=== PATIENT | female | born 1950 | race Caucasian/White ===

== ENCOUNTER 2020-03-31 07:03 | Inpatient (IN) | payer OTHER, SELFPAY ==
[2020-03-31] VITALS (15 sets, daily range): BP systolic 110–178; BP diastolic 66–99; PULSE 87–107; RESP 14–22; TEMP 36.4–37; O2SAT 91–100; BMI 31.1
--- NOTE | 2020-03-31 07:09 | W.ED.SOB ---
HPI - SOB/Dyspnea General: Chief Complaint: Shortness of Breath/Dyspnea Stated Complaint: SOB, cough Time Seen by Provider: 03/31/20 07:09 History of Present Illness: HPI Narrative: 70-year-old female comes in complaining of shortness of breath. Patient presents via EMS on 4 L/min. She states she recently traveled here from [place] she has had increasing difficulty breathing this morning when she tries to take a deep breath she says her chest feels like she cannot really breathe and all the way. She tried some nebulizers at home with no relief. She denies fever she has a baseline productive cough the cough is not changed in volume of sputum or color or character. She denies nausea vomiting or diarrhea no GI or symptoms. MD elicited complaint: shortness of breath and cough Pertinent past history: COPD Onset (ago): day(s) Context: recent travel (Traveled to [place] for [facility]) and anxiety Severity: moderate Exacerbating factors: coughing, inspiration, stress and smoke Relieving factors: oxygen and rest Known history of: COPD Associated symptoms: Reports cough; Deny abdominal pain, chest pain, diaphoresis, dizziness, extremity pain, fever(s), hemoptysis, lightheadedness, nausea, orthopnea, palpitations, paresthesias, rash, sense of impending doom, syncope, vomiting or other Treatment prior to arrival: oxygen, bronchodilator and other (Solu-Medrol) Review of Systems Const: Denies: fever(s) or diaphoresis ENMT: Denies: throat pain, ear or mastoid pain, nasal discharge or nasal congestion Card: Denies: chest pain, palpitations, lightheadedness, syncope or orthopnea Resp: Denies: hemoptysis GI: Denies: abdominal pain, nausea or vomiting : Denies: flank pain, difficulty voiding, dysuria, urinary frequency or urinary urgency Musc: Denies: extremity pain Skin/Breast: Denies: rash or pruritus Neuro: Denies: dizziness PFSH ED PFSH: Medical History COPD (chronic obstructive pulmonary disease) Gastroesophageal reflux disease Hyperlipidemia Hypertension Retinal tear Surgical History Hx of cataract surgery Hx of section Hx of cholecystectomy Family History Mother , Trauma No problems noted. Father Alcoholic Social History (Updated 03/31/20 @ 10:13 by Judy Jaeger DO) Smoking and tobacco status: heavy tobacco smoker cigarettes Packs smoked per day: 1 Years cigarettes smoked: 50 Quit status (tobacco): has quit using tobacco Year quit tobacco: 2019 Former quit date comment: Per patient she quit 2 or 3 weeks ago Alcohol intake: current Alcohol intake frequency: holidays/special occasions only Substance/Drug Use: never Physical Exam Const: COMMON NORMALS: no acute distress GENERAL APPEARANCE: cooperative and comfortable ORIENTATION/CONSCIOUSNESS: Yes awake, Yes oriented to person, Yes oriented to place and Yes oriented to time HENMT: COMMON NORMALS: normocephalic and atraumatic HEAD & SCALP: normocephalic and atraumatic Eye: COMMON NORMALS: Equal, round and reactive pupils present, EOMs intact bilaterally, conjunctivae normal and no scleral icterus CONJUNCTIVA: Yes conjunctivae normal PUPIL: Yes Equal, round and reactive pupils present Neck/C-Spine: COMMON NORMALS: full ROM, no lymphadenopathy, supple and no JVD Lymph: LYMPHATIC: no lymphadenopathy noted and no lymphedema noted Resp: COMMON NORMALS: normal respiratory effort, No retractions, No use of accessory muscles and clear to auscultation bilaterally AUSCULTATION: clear to auscultation bilaterally Cardio: COMMON NORMALS: no JVD, regular rate, regular rhythm and No murmurs present (Cardio) RATE: regular rate RHYTHM: regular rhythm GI: COMMON NORMALS: Soft to palpation and No hepatosplenomegaly present AUSCULTATION: Yes normoactive bowel sounds PALPATION: Yes Soft to palpation, No Tenderness to palpation present (GI), No Guarding due to palpation present (GI) and Yes No hepatosplenomegaly present Extremity: COMMON NORMALS: normal to inspection, capillary refill normal, no clubbing, cyanosis or edema, no calf tenderness and no pedal edema Neuro: SENSORIUM/ORIENTATION: Yes oriented to person, Yes oriented to place and Yes oriented to time Skin: COMMON NORMALS: no rashes or lesions noted GENERAL SKIN EXAM: no rashes or lesions noted Course Vital Signs: Vital signs: Vital Signs Temperature 97.6 F 04/01/20 08:00 Pulse Rate 94 04/01/20 08:32 Respiratory Rate 20 H 04/01/20 08:32 Blood Pressure 148/76 04/01/20 08:00 Pulse Oximetry 95 04/01/20 08:32 MDM - SOB/Dyspnea MDM Narrative: Medical decision making narrative: Moderate acute exacerbation of chronic obstructive airway disease he also has a mild cystitis we will place in the hospital for oxygen support and aggressive pulmonary toilet. Also cover her for the cystitis. Discussed Dr. Jaeger she will be admitting. Lab Data: Labs: Lab Results 03/31/20 03/31/20 03/31/20 Range/Units 07:10 07:10 07:10 WBC 13.8 H (4.0-10.0) 10^3/ uL RBC 4.76 (4.1-5.3) 10^6/u L Hgb 14.0 (11.5-15.3) g/dL Hct 44.3 (37.0-47.0) % MCV 93.1 (81-99) fL MCH 29.4 (28.0-34.0) pg MCHC 31.6 (30.0-36.0) g/dL RDW 12.8 (12.1-15.1) % Plt Count 347 (130-400) 10^3/c mm MPV 10.9 H (7.4-10.4) fL Neut % (Auto) 67.2 % Lymph % (Auto) 20.6 % Hood % (Auto) 9.3 % Eos % (Auto) 1.7 % Baso % (Auto) 0.9 % Neut # (Auto) 9.28 H (1.8-7.7) 10^3/u L Lymph # (Auto) 2.8 (0.8-4.8) 10^3/u L Hood # (Auto) 1.3 H (0.2-0.9) 10^3/u L Eos # (Auto) 0.2 (0.0-0.8) 10^3/u L Baso # (Auto) 0.1 (0.0-0.1) 10^3/u L Nucleated RBC % (a uto) 0 % Nucleated RBCs # 0.0 /100WBC D-Dimer (0-0.59) ug/mIFE U Specimen Type Sample Site ABG pH (7.35-7.45) ABG pCO2 (35-45) mmHg ABG pO2 (80.0-100.0) mmH g ABG HCO3 (22-26) mmol/L ABG O2 Saturation ABG Base Excess (-2.0-2.0) mmol/ L Mike Test A-a O2 Gradient (5-10) mmHg Hematocrit (37-47) % Hgb O2 Saturation (95-100) % Carboxyhemoglobin (0.4-20.1) %THgb Methemoglobin (0.4-1.5) % Total Hemoglobin (12-16) g/dL Ionized Calcium (1.1-1.4) mmol/L O2 Delivery Device FiO2 % [place] Worker ID Sodium 139 (136-145) mmol/L Potassium 4.2 (3.5-5.1) mmol/L Chloride 101 (98-107) mmol/L Carbon Dioxide 27 (22-29) mmol/L Anion Gap 15.2 (5-19) BUN 9 (8-23) mg/dL Creatinine 0.6 (0.5-0.9) mg/dL GFR Calculation 99.1 (90-130) mL/min Glucose 143 H (65-115) mg/dL Calculated Osmolal ity 286 (285-295) mOsm/k g Calcium 8.9 (8.5-10.5) mg/dL Total Bilirubin 0.3 (0.15-1.2) mg/dL AST 16 (0-32) U/L ALT 21 (0-33) U/L Alkaline Phosphata se 107 H (35-105) IU/L Troponin T Baselin e 6 (0-10) ng/L Troponin T 120 Min [place] si[place] (0-10) ng/L Delta Troponin T (0-10) ABS# Total Protein 7.1 (6.6-8.7) g/dL Albumin 4.0 (3.5-5.2) g/dL Globulin 3.1 (1.3-4.6) g/dL Urine Color (Yellow) Urine Appearance (CLEAR) Urine pH (5-7) Ur Specific Gravit y (1.005-1.030) Urine Protein (Negative) Urine Glucose (UA) (Normal) Urine Ketones (Negative) Urine Blood (Negative) Urine Nitrate (Negative) Urine Bilirubin (NEGATIVE) Urine Urobilinogen (Negative) mg/dL Ur Leukocyte Savana ase (Negative) Urine RBC (0-2) /hpf Urine WBC (0-5) /hpf Ur Squamous Epith Cells (0-5) Amorphous Sediment Urine Bacteria (NONE) Urine Mucus SARS-CoV-2 Ag (Rap id) (Negative) 03/31/20 03/31/20 03/31/20 Range/Units 07:10 07:39 07:58 WBC (4.0-10.0) 10^3/ uL RBC (4.1-5.3) 10^6/u L Hgb (11.5-15.3) g/dL Hct (37.0-47.0) % MCV (81-99) fL MCH (28.0-34.0) pg MCHC (30.0-36.0) g/dL RDW (12.1-15.1) % Plt Count (130-400) 10^3/c mm MPV (7.4-10.4) fL Neut % (Auto) % Lymph % (Auto) % Hood % (Auto) % Eos % (Auto) % Baso % (Auto) % Neut # (Auto) (1.8-7.7) 10^3/u L Lymph # (Auto) (0.8-4.8) 10^3/u L Hood # (Auto) (0.2-0.9) 10^3/u L Eos # (Auto) (0.0-0.8) 10^3/u L Baso # (Auto) (0.0-0.1) 10^3/u L Nucleated RBC % (a uto) % Nucleated RBCs # /100WBC D-Dimer 0.38 (0-0.59) ug/mIFE U Specimen Type Arterial Sample Site Radial, right ABG pH 7.42 (7.35-7.45) ABG pCO2 41.9 (35-45) mmHg ABG pO2 59.4 L (80.0-100.0) mmH g ABG HCO3 27.2 H (22-26) mmol/L ABG O2 Saturation 90.8 ABG Base Excess 2.4 H (-2.0-2.0) mmol/ L Mike Test Pos A-a O2 Gradient 5.1 (5-10) mmHg Hematocrit 45.2 (37-47) % Hgb O2 Saturation 88.7 L (95-100) % Carboxyhemoglobin 0.8 (0.4-20.1) %THgb Methemoglobin 1.5 (0.4-1.5) % Total Hemoglobin 14.7 (12-16) g/dL Ionized Calcium 1.2 (1.1-1.4) mmol/L O2 Delivery Device Room air FiO2 21.0 % [place] Worker ID glc Sodium 141.0 (136-145) mmol/L Potassium 3.7 (3.5-5.1) mmol/L Chloride (98-107) mmol/L Carbon Dioxide (22-29) mmol/L Anion Gap (5-19) BUN (8-23) mg/dL Creatinine (0.5-0.9) mg/dL GFR Calculation (90-130) mL/min Glucose 157.0 H (65-115) mg/dL Calculated Osmolal ity (285-295) mOsm/k g Calcium (8.5-10.5) mg/dL Total Bilirubin (0.15-1.2) mg/dL AST (0-32) U/L ALT (0-33) U/L Alkaline Phosphata se (35-105) IU/L Troponin T Baselin e (0-10) ng/L Troponin T 120 Min [place] (0-10) ng/L Delta Troponin T (0-10) ABS# Total Protein (6.6-8.7) g/dL Albumin (3.5-5.2) g/dL Globulin (1.3-4.6) g/dL Urine Color Yellow (Yellow) Urine Appearance Clear (CLEAR) Urine pH 5.0 (5-7) Ur Specific Gravit y 1.015 (1.005-1.030) Urine Protein Neg (Negative) Urine Glucose (UA) Norm (Normal) Urine Ketones Negative (Negative) Urine Blood Neg (Negative) Urine Nitrate Positive H (Negative) Urine Bilirubin Neg (NEGATIVE) Urine Urobilinogen Norm (Negative) mg/dL Ur Leukocyte Savana ase Trace (Negative) Urine RBC None (0-2) /hpf Urine WBC 0-4 H (0-5) /hpf Ur Squamous Epith Cells Rare (0-5) Amorphous Sediment Not Reportable Urine Bacteria 3+ H (NONE) Urine Mucus Trace SARS-CoV-2 Ag (Rap id) (Negative) 03/31/20 03/31/20 Range/Units 09:25 09:25 WBC (4.0-10.0) 10^3/ uL RBC (4.1-5.3) 10^6/u L Hgb (11.5-15.3) g/dL Hct (37.0-47.0) % MCV (81-99) fL MCH (28.0-34.0) pg MCHC (30.0-36.0) g/dL RDW (12.1-15.1) % Plt Count (130-400) 10^3/c mm MPV (7.4-10.4) fL Neut % (Auto) % Lymph % (Auto) % Hood % (Auto) % Eos % (Auto) % Baso % (Auto) % Neut # (Auto) (1.8-7.7) 10^3/u L Lymph # (Auto) (0.8-4.8) 10^3/u L Hood # (Auto) (0.2-0.9) 10^3/u L Eos # (Auto) (0.0-0.8) 10^3/u L Baso # (Auto) (0.0-0.1) 10^3/u L Nucleated RBC % (a uto) % Nucleated RBCs # /100WBC D-Dimer (0-0.59) ug/mIFE U Specimen Type Sample Site ABG pH (7.35-7.45) ABG pCO2 (35-45) mmHg ABG pO2 (80.0-100.0) mmH g ABG HCO3 (22-26) mmol/L ABG O2 Saturation ABG Base Excess (-2.0-2.0) mmol/ L Mike Test A-a O2 Gradient (5-10) mmHg Hematocrit (37-47) % Hgb O2 Saturation (95-100) % Carboxyhemoglobin (0.4-20.1) %THgb Methemoglobin (0.4-1.5) % Total Hemoglobin (12-16) g/dL Ionized Calcium (1.1-1.4) mmol/L O2 Delivery Device FiO2 % [place] Worker ID Sodium (136-145) mmol/L Potassium (3.5-5.1) mmol/L Chloride (98-107) mmol/L Carbon Dioxide (22-29) mmol/L Anion Gap (5-19) BUN (8-23) mg/dL Creatinine (0.5-0.9) mg/dL GFR Calculation (90-130) mL/min Glucose (65-115) mg/dL Calculated Osmolal ity (285-295) mOsm/k g Calcium (8.5-10.5) mg/dL Total Bilirubin (0.15-1.2) mg/dL AST (0-32) U/L ALT (0-33) U/L Alkaline Phosphata se (35-105) IU/L Troponin T Baselin e (0-10) ng/L Troponin T 120 Min [place] 6.00 (0-10) ng/L Delta Troponin T 0 (0-10) ABS# Total Protein (6.6-8.7) g/dL Albumin (3.5-5.2) g/dL Globulin (1.3-4.6) g/dL Urine Color (Yellow) Urine Appearance (CLEAR) Urine pH (5-7) Ur Specific Gravit y (1.005-1.030) Urine Protein (Negative) Urine Glucose (UA) (Normal) Urine Ketones (Negative) Urine Blood (Negative) Urine Nitrate (Negative) Urine Bilirubin (NEGATIVE) Urine Urobilinogen (Negative) mg/dL Ur Leukocyte Savana ase (Negative) Urine RBC (0-2) /hpf Urine WBC (0-5) /hpf Ur Squamous Epith Cells (0-5) Amorphous Sediment Urine Bacteria (NONE) Urine Mucus SARS-CoV-2 Ag (Rap id) Negative (Negative) Discharge Plan Discharge Patient Disposition: Placed in Observation Admit Provider: Judy Jaeger Clinical Impression: Acute exacerbation of chronic obstructive airways disease, Cystitis Condition: Stable Patient Instructions: COPD, Urinary Tract Infection in Women (GEN), COPD Stoplight Discharge Date/Time: 03/31/20 11:21 Coding Level of Care Code ED Yam Curer for Sanchezg Fwd Exam Comprehensive
--- NOTE | 2020-03-31 07:23 | XR_ITS ---
WS: [id number] PORTABLE CHEST HISTORY: dyspnea/cough COMPARISON: None available. Moderate pulmonary hyperinflation. Scarring or atelectasis is subsegmental at the RIGHT lung base. No pneumonia. Normal vasculature. No pleural effusion or pneumothorax. Cardiac size: Normal. Mediastinum/Aorta: Mild atherosclerosis aorta. No osseous abnormality seen. XR/XR chest 1V portable [id number] IMPRESSION: Chronic emphysema and partially calcified aorta.
--- NOTE | 2020-03-31 07:23 | ECG_ITS ---
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 Measurements Intervals Hiko Rate: 92 P: 63 WV: 135 QRS: 7 QRSD: 70 T: 17 QT: 370 QTc: 460 Interpretive Statements SINUS RHYTHM No previous ECG available for comparison Electronically Signed On 03-31-2020 18:13:48 CDT by Eduardo Ortega M.D. [id number]
[2020-03-31 07:37] LABS: Basophils # 0.1 10^3/uL (0.0-0.1); Basophils % 0.9 %; Eosinophils # 0.2 10^3/uL (0.0-0.8); Eosinophils % 1.7 %; Hematocrit 44.3 % (37.0-47.0); Lymphocytes # 2.8 10^3/uL (0.8-4.8); Lymphocytes % 20.6 %; Mean Corpuscular HGB Conc 31.6 g/dL (30.0-36.0); Mean Corpuscular Hemoglobin 29.4 pg (28.0-34.0); Mean Corpuscular Volume 93.1 fL (81-99); Mean Platelet Volume 10.9 fL (7.4-10.4); Monocytes # 1.3 10^3/uL (0.2-0.9); Monocytes % 9.3 %; Neutrophils # 9.28 10^3/uL (1.8-7.7); Neutrophils % 67.2 %; Nucleated Red Blood Cells % 0 %; Platelet Count 347 10^3/cmm (130-400); Red Blood Count 4.76 10^6/uL (4.1-5.3); Red Cell Distribution Width 12.8 % (12.1-15.1); White Blood Count 13.8 10^3/uL (4.0-10.0)
[2020-03-31 07:47] LABS: Alanine Aminotransferase 21 U/L (0-33); Alkaline Phosphatase 107 IU/L (35-105); Anion Gap 15.2 (5-19); Aspartate Amino Transferase 16 U/L (0-32); Blood Urea Nitrogen 9 mg/dL (8-23); Calcium 8.9 mg/dL (8.5-10.5); Carbon Dioxide 27 mmol/L (22-29); Chloride 101 mmol/L (98-107); Globulin 3.1 g/dL (1.3-4.6); Glomerular Filtration Rate 99.1 mL/min (90-130); Glucose 143 mg/dL (65-115); Osmolality Calculated 286 mOsm/kg (285-295); Potassium 4.2 mmol/L (3.5-5.1); Sodium 139 mmol/L (136-145); Total Bilirubin 0.3 mg/dL (0.15-1.2); Total Protein 7.1 g/dL (6.6-8.7); Troponin(5th) Baseline 6 ng/L (0-10)
[2020-03-31 07:50] LABS: ABG PCO2 41.9 mmHg (35-45); ABG PH Result 7.42 (7.35-7.45); Alveolar-Arterial Oxygen Gradi 5.1 mmHg (5-10); Arterial Blood Gas Hematocrit 45.2 % (37-47); Base Excess ABG 2.4 mmol/L (-2.0-2.0); Blood Gas Allen Test Pos; Blood Gas Operator Identificat glc; Blood Gas Sample Site Radial, right; Blood Gas Sample Type Arterial; Carboxyhemoglobin 0.8 %THgb (0.4-20.1); HCO3 ABG 27.2 mmol/L (22-26); HGB O2 Sat 88.7 % (95-100); Ionized Calcium Level - ABG 1.2 mmol/L (1.1-1.4); Methemoglobin 1.5 % (0.4-1.5); Oxygen Device ROOM AIR; Oxygen Saturation ABG 90.8; PO2 ABG 59.4 mmHg (80.0-100.0); Potassium Level - ABG 3.7 mmol/L (3.5-5.0); Total Hemoglobin 14.7 g/dL (12-16)
[2020-03-31 08:33] LABS: Add Urine Microscopic? YES; Bilirubin Urine Neg (NEGATIVE); Blood Urine Neg (Negative); Glucose Urine UA Norm (Normal); Ketones Urine Negative (Negative); Leukocyte Esterase Urine Trace (Negative); Nitrate Urine Positive (Negative); Protein Urine Neg (Negative); Specific Gravity, Urine 1.015 (1.005-1.030); Urine Appearance Clear (CLEAR); Urine Color Yellow (Yellow); Urobilinogen Urine Norm (Negative)
[2020-03-31 08:34] LABS: Add Urine Culture? Yes; Bacteria Urine 3+; Mucus Urine TRACE; Squamous Epithelial Cell Urine RARE (0-5); WBC Urine 0-4 /hpf (0-5)
--- NOTE | 2020-03-31 09:23 | ECG_ITS ---
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 Measurements Intervals Theodore Rate: 82 P: 70 CA: 137 QRS: 13 QRSD: 77 T: 17 QT: 387 QTc: 453 Interpretive Statements SINUS RHYTHM Compared to ECG 03/31/2020 07:33:57 No significant changes Electronically Signed On 03-31-2020 18:35:42 CDT by Eduardo Ortega M.D. [email or web address] Interactiveselect medical [facility].[employer]/store/OM/[id number]
[2020-03-31 09:55] LABS: Troponin 5 2HR Delta 0 ABS# (0-10)
[2020-03-31 10:01] LABS: SARS Covid-2 Antigen Negative (Negative)
[2020-03-31] MEDS: cefTRIAXone 1,000 MG in sodium chloride 0.9% (plus) 50 ML 100 MG IV (10:01)
--- NOTE | 2020-03-31 10:07 | PM.HP ---
Providers/Chief Complaint Admitting Physician: Judy Jaeger DO Chief Complaint: SOB, cough History of Present Illness Azeb Lewis is a 70 year old female with a past medical history of hypertension, hyperlipidemia and COPD that presented to the emergency department today for increasing shortness of breath. She stated that she recently traveled here last Friday fluid to be with her brother due to the of her [id number]. She stated that her symptoms worsened over the past day. She stated that she went in to a store and had a mask on her face when she came out from the store she began having increasing shortness of breath and was unable to recover. She watched her symptoms overnight but they continued to decline therefore she came into the ER for further evaluation and treatment today. She reports that she feels bad as she feels like she is a burden to her brother and is supposed to fly out tomorrow to return home. She denies any fevers or chills but reports an increasing cough and sputum production. She reports pain with deep inspiration. Patient denies any sick contacts, but has been in an airport recently. She denies any known exposure to anyone with COVID-19. She denies wearing any oxygen at home. Patient was seen and evaluated in the emergency department noted to have concern for COPD exacerbation and admitted to the hospital for further evaluation and treatment. She was placed on isolation precautions and tested for COVID-19 Review of Systems Const: Denies: fever(s) or chills Eyes: Denies: change in vision ENMT: Denies: nasal congestion Card: Denies: chest pain, palpitations or edema Resp: Reports: dyspnea, productive cough and pain on inspiration; Denies: hemoptysis GI: Denies: abdominal pain, nausea, vomiting, diarrhea, constipation, hematochezia or melena : Denies: dysuria or hematuria Musc: Denies: extremity pain or muscle cramps Skin/Breast: Denies: rash or new lesions Neuro: Denies: headache(s) or dizziness Psych: Denies: anxiety or depression Endo: Denies: polyuria or hot flashes Sandip/Lymph: Denies: easy bruising or easy bleeding Medications/Allergies Home Medications Medication Instructions Recorded Confirmed Last Taken Type albuterol sulfate 2 puff INHALATION Q6H PRN 03/31/20 03/31/20 03/31/20 History aspirin 81 mg PO DAILY 03/31/20 03/31/20 03/30/20 History atorvastatin 10 mg PO DAILY 03/31/20 03/31/20 03/29/20 History budesonide-formoterol [Symbicort] 2 puff INHALATION BID 03/31/20 03/31/20 03/30/20 History hydrochlorothiazide 12.5 mg PO DAILY 03/31/20 03/31/20 03/30/20 History losartan 50 mg PO DAILY 03/31/20 03/31/20 03/30/20 History omeprazole 20 mg PO DAILY 03/31/20 03/31/20 03/30/20 History Allergies Allergy/AdvReac Type Severity Reaction Status Date / Time bupropion [From Wellbutrin] Allergy ADR-Shakine Verified 03/31/20 11:49 ss codeine Allergy ALGY-Hives Verified 03/31/20 11:49 PFSH Acute PFSH: Medical History COPD (chronic obstructive pulmonary disease) Gastroesophageal reflux disease Hyperlipidemia Hypertension Retinal tear Surgical History Hx of cataract surgery Hx of section Hx of cholecystectomy Family History Mother , Trauma No problems noted. Father Alcoholic Social History (Updated 03/31/20 @ 10:13 by Judy Jaeger DO) Smoking and tobacco status: heavy tobacco smoker cigarettes Packs smoked per day: 1 Years cigarettes smoked: 50 Quit status (tobacco): has quit using tobacco Year quit tobacco: 2019 Former quit date comment: Per patient she quit 2 or 3 weeks ago Alcohol intake: current Alcohol intake frequency: holidays/special occasions only Substance/Drug Use: never Vitals/I&O/Wt Last Vital Signs Temp 98.0 F 03/31/20 07:04 Pulse 90 03/31/20 09:30 Resp 22 H 03/31/20 09:30 BP 157/96 03/31/20 09:29 Pulse Ox 96 03/31/20 09:30 Weight last 48 hrs Weight 74.843 kg Data : 04/04/20 04:54 04/04/20 04:54 CXR: I personally reviewed and interpreted this imaging study as follows: Radiologist's impression: COMPARISON: None available. Moderate pulmonary hyperinflation. Scarring or atelectasis is subsegmental at the RIGHT lung base. No pneumonia. Normal vasculature. No pleural effusion or pneumothorax. Cardiac size: Normal. Mediastinum/Aorta: Mild atherosclerosis aorta. No osseous abnormality seen. XR/XR chest 1V portable [id number] IMPRESSION: Chronic emphysema and partially calcified aorta. A&P Assessment and plan (1) Acute exacerbation of chronic obstructive airways disease: Observation Respiratory therapy to assess and treat, oxygen per protocol, currently on 2 L of oxygen by nasal cannula Prednisone 40 mg daily Levaquin 750 mg daily Continue with albuterol every 4 hours Undergoing testing for COVID-19 Status: Acute (2) Cystitis: Patient denies any symptoms, we will follow-up with urine culture and continue on Levaquin as above Status: Acute (3) COPD (chronic obstructive pulmonary disease): Plan as above Status: Acute (4) Gastroesophageal reflux disease: Continue home PPI Status: Acute (5) Hyperlipidemia: Continue home statin Status: Acute (6) Hypertension: Continue home hydrochlorothiazide and losartan Status: Acute Additional A&P Information Pleuritic chest pain: We will check d-dimer and CTA of the chest if indicated. 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
[2020-03-31 10:32] LABS: D Dimer 0.38 ug/mIFEU (0-0.59)
--- NOTE | 2020-03-31 11:52 | PC.NURSE ---
Patient admitted to Floor. Patient a/o x 4. Pt denies pain. SCD's Applied to patient. Assessment completed by Angy ESCOBAR RN Lung sounds are diminished but clear upon auscultation. Right foot noted to have an area of erythema, patient states it is Psoriasis, No Open Area noted. Will continue to monitor. VERNA CHEUNG
[2020-03-31] MEDS: aspirin 81 mg Chew Tablet PO (11:57)
[2020-03-31] MEDS: hydroCHLOROthiazide 25 mg Tablet 12.5 MG PO (11:59)
[2020-03-31] MEDS: losartan 50 mg Tablet PO (12:00)
[2020-03-31] MEDS: atorvastatin 40 mg Tablet 20 MG PO (12:00)
[2020-03-31] MEDS: pantoprazole DR 40 mg Tablet PO (12:00)
[2020-03-31] MEDS: enoxaparin 40 mg/0.4 mL Syringe SUBCUT (12:01)
[2020-03-31 12:36] LABS: Basophils # 0.1 10^3/uL (0.0-0.1); Basophils % 0.5 %; Hematocrit 43.7 % (37.0-47.0); Lymphocytes # 0.8 10^3/uL (0.8-4.8); Lymphocytes % 6.8 %; Mean Corpuscular Hemoglobin 29.9 pg (28.0-34.0); Mean Corpuscular Volume 93.2 fL (81-99); Mean Platelet Volume 10.6 fL (7.4-10.4); Monocytes # 0.1 10^3/uL (0.2-0.9); Monocytes % 0.5 %; Neutrophils # 10.15 10^3/uL (1.8-7.7); Neutrophils % 91.8 %; Nucleated Red Blood Cells % 0 %; Platelet Count 345 10^3/cmm (130-400); Red Blood Count 4.69 10^6/uL (4.1-5.3); Red Cell Distribution Width 12.8 % (12.1-15.1)
[2020-03-31 12:45] LABS: INR 0.99 (0.8-1.2)
[2020-03-31 13:01] LABS: Thyroid Stimulating Hormone 0.44 uIU/mL (0.27-4.20)
[2020-03-31 13:02] LABS: Estmated Average Glucose 169; Hemoglobin A1C 7.5 % (4.0-6.0)
[2020-03-31 13:21] LABS: Troponin 5 6HR Delta 0 ng/L (0-12)
--- NOTE | 2020-03-31 13:23 | ECG_ITS ---
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 Measurements Intervals [place] Rate: 90 P: 71 [place]: 143 QRS: -1 QRSD: 70 T: 4 QT: 372 QTc: 457 Interpretive Statements SINUS RHYTHM Compared to ECG 03/31/2020 09:23:21 No significant changes Electronically Signed On 03-31-2020 18:32:12 CDT by Eduardo Ortega M.D. [email or web address] [email or web address] [email or web address] [email or web address] Mercantilecleveland clinic fairview hospitalKu/store/OM/[id number]
[2020-03-31] MEDS: albuterol 8 gm MDI 2 PUFF INHALATION (20:47)
[2020-04-01] VITALS (14 sets, daily range): BP systolic 130–158; BP diastolic 64–90; PULSE 68–101; RESP 18–20; TEMP 36.4–36.9; O2SAT 4–96; BMI 33.5
[2020-04-01] MEDS: albuterol 8 gm MDI 2 PUFF INHALATION ×2 (04:00→08:28)
[2020-04-01] MEDS: alum-mag-hydroxide-sime 30 mL UDC PO (04:08)
[2020-04-01 04:29] LABS: Anion Gap 12.2 (5-19); Blood Urea Nitrogen 19 mg/dL (8-23); Calcium 8.8 mg/dL (8.5-10.5); Carbon Dioxide 28 mmol/L (22-29); Chloride 100 mmol/L (98-107); Glomerular Filtration Rate 62.1 mL/min (90-130); Glucose 214 mg/dL (65-115); Osmolality Calculated 285 mOsm/kg (285-295); Potassium 4.2 mmol/L (3.5-5.1); Sodium 136 mmol/L (136-145)
--- NOTE | 2020-04-01 06:06 | PC.NURSE ---
Shift Summary Patient is currently on 2 liters of oxygen. Lungs sound clear but diminished. Patient requested to use inhaler twice. Patient was able to ambulate to the bathroom on her own with output of 1000 ml. Patient complained of heartburn and the hospitalist telephone clerks supervisor ordered 30cc of Mylanta PO Once. Patient had good results with that medication and reports improvement. Patient is now able to rest well and is hoping to be able to leave early this morning.
[2020-04-01] MEDS: levoFLOXacin 750 mg Tablet PO (06:14)
[2020-04-01] MEDS: aspirin 81 mg Chew Tablet PO (07:40)
[2020-04-01] MEDS: hydroCHLOROthiazide 25 mg Tablet 12.5 MG PO (07:40)
[2020-04-01] MEDS: atorvastatin 40 mg Tablet 20 MG PO (07:41)
[2020-04-01] MEDS: losartan 50 mg Tablet PO (07:41)
[2020-04-01] MEDS: pantoprazole DR 40 mg Tablet PO (07:42)
[2020-04-01] MEDS: predniSONE 20 mg Tablet 40 MG PO (07:42)
[2020-04-01] MEDS: enoxaparin 40 mg/0.4 mL Syringe SUBCUT (11:32)
--- NOTE | 2020-04-01 13:12 | CTR_ITS ---
PROCEDURE INFORMATION: Exam: CT Chest Without Contrast Exam date and time: 04/01/2020 3:00 PM Age: 70 years old Clinical indication: Shortness of breath; Patient HX: SOB, copd exacerbation TECHNIQUE: Imaging protocol: Computed tomography of the chest without contrast. Radiation optimization: All CT scans at this facility use at least one of these dose optimization techniques: automated exposure control; mA and/or kV adjustment per patient size (includes targeted exams where dose is matched to clinical indication); or iterative reconstruction. COMPARISON: CR XR chest 1V portable [id number] 03/31/2020 7:21 AM RADIATION DOSE METRICS: Total DLP (mGy-cm): 793.07 FINDINGS: Thyroid: There is an incidental 8 mm hypodensity in the right thyroid lobe that is too small to characterize. The remainder of the thyroid gland is unremarkable. Lungs: There are severe emphysematous changes. There is linear atelectasis versus scarring in the lung bases. There is also mild dependent atelectasis. There is bronchiectasis without mucous plugging. There is mild peribronchial thickening and interstitial prominence that may reflect some very mild pneumonitis or trace interstitial edema/CHF. There is no lobar or ground-glass opacities. Pleural space: Unremarkable. No pneumothorax. No pleural effusion. Heart: Unremarkable. No cardiomegaly. No pericardial effusion. Mediastinal space: A small hiatal hernia is present. Aorta: Unremarkable. No aortic aneurysm. Lymph nodes: Unremarkable. No enlarged lymph nodes. Gallbladder and bile ducts: There has been a cholecystectomy. Bones/joints: There are moderate diffuse degenerative changes in the spine. No acute bony abnormality. Soft tissues: Unremarkable. CT/CT chest con [id number] IMPRESSION: 1. Severe emphysematous changes with bronchiectasis. There is mild peribronchial thickening and subtle interstitial prominence that may reflect mild pneumonitis or trace interstitial edema/CHF. No lobar consolidation or focal ground-glass opacities. 2. Incidental 8 mm indeterminate hypodense nodule right thyroid lobe. No follow-up is necessary. COMMENTS: Consistent with the [place] [employer]'s Incidental Findings Committee white paper (J Am Amarilis Radiol 2015): In patients aged 35 years and older with an incidental thyroid nodule equal to or greater than 1.[address], MRI or extrathyroidal US, further evaluation with dedicated thyroid US is recommended for patients with normal life expectancy and without comorbidities. For smaller nodules without suspicious features, no further evaluation or follow up is recommended. Radiation Dose CTDIVOL = (mGy): DLP = 793.07 (mGy-cm)
--- NOTE | 2020-04-01 13:13 | USCV_ITS ---
Azeb Lewis Age: 70 Gender: F : 1950 Exam Date: 04/01/2020 14:10 Ordering Phys: Arnulfo Jung MD Technologist: Estee Vanegas Exam Location: [facility] [place] Indication: History of pulmonary hypertension and diastolic dysfunction. Assess ejection fraction BP: / HR: Rhythm: Sinus Technical Quality: Technically difficult study MEASUREMENTS (Male / Female) Normal Values 2D ECHO LV Diastolic Diameter PLAX 3.9 cm 4.2 - 5.9 / 3.9 - 5.3 cm LV Systolic Diameter PLAX 1.9 cm LV Chamber Size 3.5 cm IVS Diastolic Thickness 1.8 cm 0.6 - 1.0 / 0.6 - 0.9 cm IVS Systolic Thickness 2.4 cm LVPW Diastolic Thickness 1.2 cm 0.6 - 1.0 / 0.6 - 0.9 cm LVPW Systolic Thickness 1.6 cm RV Chamber Size 1.6 cm LVOT Diameter 2.0 cm LV Ejection Fraction 2D Teich 83.2 % LA Diameter 3.5 cm LA Width 1.6 cm LA Height 4.2 cm RA Width 2.1 cm RA Height 3.3 cm Aorta at Sinotubular Diameter 2.1 cm M-MODE LV Diastolic Diameter MM 4.6 cm 4.2 - 5.9 / 3.9 - 5.3 cm LV Systolic Diameter MM 2.9 cm LV Ejection Fraction MM Teich 67.4 % IVS Diastolic Thickness MM 1.4 cm 0.6 - 1.0 / 0.6 - 0.9 cm IVS Systolic Thickness MM 1.4 cm LVPW Diastolic Thickness MM 1.3 cm 0.6 - 1.0 / 0.6 - 0.9 cm LVPW Systolic Thickness MM 1.3 cm RV Diastolic Diameter MM 0.9 cm Aortic Annulus Diameter 2.9 cm LA Ao Ratio MM 1.2 MV E Point Septal Separation 0.3 cm DOPPLER AV Peak Velocity 183.0 cm/s LVOT Peak Velocity 146.0 cm/s AV Area Cont Eq vti 2.8 cm squared AV Area Cont Eq pk 2.5 cm squared MV Area PHT 4.8 cm squared Mitral E to A Ratio 0.7 MV E' Velocity 7.0 cm/s Mitral E to MV E' Ratio 11.5 Mitral E to LV E' Lateral Ratio 12.3 Mitral E to LV E' Septal Ratio 10.9 TV Peak E Velocity 41.0 cm/s Right Atrial Pressure 3.0 mmHg PV Peak Velocity 98.0 cm/s RV Acceleration Time 0.1 s RV Ejection Time 0.2 s RV AcT/ET 0.3 FINDINGS Left Ventricle Normal left ventricular size and systolic function with no regional wall motion abnormalities. Left ventricular ejection fraction is estimated at 70%. No diagnostic regional wall motion abnormalities. Grade I diastolic dysfunction (abnormal relaxation filling pattern), normal to mildly elevated filling pressures. Right Ventricle Normal right ventricular size and systolic function. Tricuspid valve regurgitant jet is inadequate for estimation of RVSP. Right Atrium Right atrium not well visualized. Left Atrium Normal left atrial size. Mitral Valve Mitral valve not well visualized. No mitral valve stenosis. Trace mitral valve regurgitation. Aortic Valve Aortic valve not well visualized. No aortic valve stenosis. No aortic valve regurgitation. Tricuspid Valve Tricuspid valve not well visualized. Trace tricuspid valve regurgitation. Pulmonic Valve Pulmonic valve not well visualized. Pericardium No pericardial effusion. Aorta Normal sized aortic root. CONCLUSIONS 1. Normal left ventricular size and systolic function with no regional wall motion abnormalities. Left ventricular ejection fraction is estimated at 70%. No diagnostic regional wall motion abnormalities. Grade I diastolic dysfunction (abnormal relaxation filling pattern), normal to mildly elevated filling pressures. 2. Normal right ventricular size and systolic function. 3. No significant valvular abnormality. 4. No prior similar studies to compare. Diana Gaytan MD (Electronically Signed) Final Date: 01 April 2020 17:59 S
--- NOTE | 2020-04-01 13:13 | USR_ITS ---
PROCEDURE INFORMATION: Exam: US Duplex Lower Extremity Veins, Bilateral Exam date and time: 04/01/2020 1:15 PM Age: 70 years old Clinical indication: Other: Shortness of breath; Additional info: R/O dvt TECHNIQUE: Imaging protocol: Real-time duplex ultrasound of the extremities with 2-D maloney scale, color Doppler flow and spectral waveform analysis with image documentation. Complete exam focused on the bilateral lower extremity veins. COMPARISON: No relevant prior studies available. FINDINGS: Right deep veins: Unremarkable. The common femoral, femoral, proximal profunda femoral and popliteal veins are patent without thrombus. Normal Doppler waveforms. Normal compressibility and/or augmentation response. Right superficial veins: Saphenofemoral junction is patent without thrombus. Left deep veins: Unremarkable. The common femoral, femoral, proximal profunda femoral and popliteal veins are patent without thrombus. Normal Doppler waveforms. Normal compressibility and/or augmentation response. Left superficial veins: Saphenofemoral junction is patent without thrombus. Soft tissues: Unremarkable. There is an incidental probable Kinney's cyst in the left popliteal fossa measuring 0.8 x 0.9 x 2.5 cm. Bilateral calf veins were difficult to visualize. US/[place] [id number] IMPRESSION: 1. No evidence of deep vein thrombosis. 2. Incidental probable Kinney's cyst posterior to the left knee.
--- NOTE | 2020-04-01 13:14 | PM.PN ---
Subjective Subjective: Interval history: Patient continues to feel out of breath. On examination she is on 2 L nasal cannula saturating 94%. She is states she is feeling wheezy. Patient is due for a flight to [place] back home in the evening today. She states she does not think she can make the flight. She is agreed to stay for further treatment. She states she has been having difficulty in breathing going on for many years but has not had any COPD exacerbation. She states due to social condition she has not been able to follow-up with her providers in [place]. She is not aware of any cardiac process for evaluation in the past. She is complaining of cough with some expectoration. Denies of having any dysuria. Denies of any fever or nausea. Patient is extremely stressed because of of her [id number]. She is tearful during the examination. Vitals/I&O/Wt Last Vital Signs Temp 97.9 F 04/01/20 11:29 Pulse 87 04/01/20 11:29 Resp 18 04/01/20 11:29 BP 149/90 04/01/20 11:29 Pulse Ox 4 L 04/01/20 11:29 03/31/20 04/01/20 04/01/20 22:59 06:59 14:59 Intake Total 720 / 1970 480 / 2450 720 / 720 Output Total 1000 / 1001 Balance 719 / 1969 -520 / 1449 720 / 720 Weight last 48 hrs Weight 80.456 kg Weight 74.843 kg Physical Exam Narrative: EXAM NARRATIVE: General: No acute distress, AO x3, on 3 L nasal cannula HEENT: PERRLA, pupils bilaterally equal and reactive Chest: Bilateral rhonchi present all over the lung field, good equal air entry all over the lung field, no other added sounds. CVS: S1-S2 regular, no murmurs, no tachycardia, no gallops, no rubs Abdomen: Soft, nontender, no organomegaly, bowel sounds present Neuro: No focal deficits, no facial deformity, AO x3, power 5/5 in all limbs Data : 03/31/20 12:22 04/01/20 04:00 Micro: Microbiology 03/31/20 07:58 Urine Culture - Preliminary Urine,Clean Catch Gram Negative Rods A&P Assessment and plan (1) Acute exacerbation of chronic obstructive airways disease: Status: Acute (2) Cystitis: Status: Acute (3) COPD (chronic obstructive pulmonary disease): Plan as above Status: Acute (4) Gastroesophageal reflux disease: Continue home PPI Status: Acute (5) Hyperlipidemia: Continue home statin Status: Acute (6) Hypertension: Continue home hydrochlorothiazide and losartan Status: Acute Additional A&P Information Shortness of breath: Most likely due to COPD exacerbation. Patient does not have any fever, leukocytosis. Check procalcitonin, CT chest, proBNP, echocardiogram to rule out regional wall motion abnormality and to evaluate for structure abnormality and EF. DuoNebs every 6 hour, budesonide twice daily. Will increase to Solu-Medrol 40 mg IV twice daily with first dose right now. 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 Continue with Levaquin 750 mg daily. COVID-19 was ruled out. For now we will hold off on any PCR for COVID-19 test. Will test depending on the results of CT scan or if patient has any fever. Hypertension: Goal blood pressure less than 140/90 allergy. Continue with home dose of losartan and hydrochlorothiazide. Dirty UA/gram-negative rods in urine culture.: Patient denies of having any dysuria. Patient already on levofloxacin which will usually cover for cystitis as well. DVT prophylaxis: Lovenox Diet: Cardiac CODE STATUS: Full code Attestations Medical Necessity Statement*: COPD exacerbation, cystitis Time Spent in Patient Care: Greater than 35 minutes (>than 50% of time spent in counselling and/or direct pt care on unit). Coding Level of Care Code Acute Certified Maintenance Welder for Milly Tobias Diagnoses Acute exacerbation of chronic obstructive airways disease J44.1 Cystitis N30.90 COPD (chronic obstructive pulmonary disease) J44.9 Gastroesophageal reflux disease K21.9 Hyperlipidemia E78.5 Hypertension I10
[2020-04-01 15:09] LABS: NT Pro B Type Natriuretic Pept 356 pg/mL (0-125); Procalcitonin 0.04 ng/mL (0-0.5)
[2020-04-01] MEDS: ipratropium-albuterol 3 mL Neb INHALATION ×2 (15:44→20:11)
[2020-04-01] MEDS: budesonide 0.5 mg/2 mL Neb INHALATION (20:11)
[2020-04-01] MEDS: TRAMadol 50 mg Tablet PO (20:57)
[2020-04-02] VITALS (13 sets, daily range): BP systolic 126–168; BP diastolic 70–96; PULSE 82–112; RESP 16–22; TEMP 36.4–37.3; O2SAT 89–96
[2020-04-02 04:25] LABS: Basophils % 0.2 %; Hematocrit 42.1 % (37.0-47.0); Hemoglobin 13.5 g/dL (11.5-15.3); Lymphocytes # 1.1 10^3/uL (0.8-4.8); Mean Corpuscular HGB Conc 32.1 g/dL (30.0-36.0); Mean Corpuscular Hemoglobin 30.1 pg (28.0-34.0); Mean Corpuscular Volume 93.8 fL (81-99); Mean Platelet Volume 10.7 fL (7.4-10.4); Monocytes # 0.6 10^3/uL (0.2-0.9); Monocytes % 3.4 %; Neutrophils % 89.6 %; Nucleated Red Blood Cells % 0 %; Platelet Count 360 10^3/cmm (130-400); Red Blood Count 4.49 10^6/uL (4.1-5.3); Red Cell Distribution Width 12.7 % (12.1-15.1); White Blood Count 18.9 10^3/uL (4.0-10.0)
[2020-04-02 05:01] LABS: Alanine Aminotransferase 21 U/L (0-33); Albumin Level 3.7 g/dL (3.5-5.2); Alkaline Phosphatase 98 IU/L (35-105); Anion Gap 11.4 (5-19); Aspartate Amino Transferase 18 U/L (0-32); Blood Urea Nitrogen 15 mg/dL (8-23); Calcium 9.5 mg/dL (8.5-10.5); Carbon Dioxide 27 mmol/L (22-29); Chloride 102 mmol/L (98-107); Glucose 235 mg/dL (65-115); Osmolality Calculated 286 mOsm/kg (285-295); Potassium 4.4 mmol/L (3.5-5.1); Sodium 136 mmol/L (136-145); Total Bilirubin 0.2 mg/dL (0.15-1.2); Total Protein 6.7 g/dL (6.6-8.7)
[2020-04-02] MEDS: levoFLOXacin 750 mg Tablet PO (05:55)
[2020-04-02] MEDS: ipratropium-albuterol 3 mL Neb INHALATION ×3 (08:34→21:54)
[2020-04-02] MEDS: budesonide 0.5 mg/2 mL Neb INHALATION ×2 (08:34→21:54)
[2020-04-02] MEDS: atorvastatin 40 mg Tablet 20 MG PO (09:23)
[2020-04-02] MEDS: losartan 50 mg Tablet PO ×2 (09:23→15:57)
[2020-04-02] MEDS: aspirin 81 mg Chew Tablet PO (09:24)
[2020-04-02] MEDS: pantoprazole DR 40 mg Tablet PO (09:24)
[2020-04-02] MEDS: hydroCHLOROthiazide 25 mg Tablet 12.5 MG PO (09:24)
[2020-04-02] MEDS: enoxaparin 40 mg/0.4 mL Syringe SUBCUT (12:43)
--- NOTE | 2020-04-02 14:24 | P.PN_ITS ---
Subjective Subjective: Interval history: No acute events overnight. Patient states she is feeling a lot better. Denies having nausea, vomiting, headache. She is on 2 L nasal cannula saturating 92%. She states she has more energy today and is able to take better breaths. She is agreeable to walk in the hong today with oxygen. Vitals/I&O/Wt Last Vital Signs Temp 98.0 F 04/02/20 11:38 Pulse 101 H 04/02/20 11:38 Resp 22 H 04/02/20 11:38 BP 168/89 04/02/20 11:38 Pulse Ox 92 04/02/20 11:38 04/01/20 04/02/20 04/02/20 22:59 06:59 14:59 Intake Total 360 / 1080 220 / 1300 480 / 480 Output Total 950 / 950 700 / 1650 Balance -590 / 130 -480 / -350 480 / 480 Weight last 48 hrs Weight 81.363 kg Weight 80.456 kg Physical Exam Narrative: EXAM NARRATIVE: General: No acute distress, AO x3, on 3 L nasal can nula HEENT: PERRLA, pupils bilaterally equal and reactive Chest: Bilateral rhonchi present all over the lung field, good equal air entry all over the lung field, no other added sounds. CVS: S1-S2 regular, no murmurs, no tachycardia, no gallops, no rubs Abdomen: Soft, nontender, no organomegaly, bowel sounds present Neuro: No focal deficits, no facial deformity, AO x3, power 5/5 in all limbs Data : 04/02/20 04:11 04/02/20 04:11 Micro: Microbiology 04/01/20 15:45 MRSA Culture - Final Nose 03/31/20 07:58 Urine Culture - Final Urine,Clean Catch Escherichia coli A&P Assessment and plan (1) Acute exacerbation of chronic obstructive airways disease: Status: Acute (2) Cystitis: Status: Acute (3) COPD (chronic obstructive pulmonary disease): Plan as above Status: Acute (4) Gastroesophageal reflux disease: Continue home PPI Status: Acute (5) Hyperlipidemia: Continue home statin Status: Acute (6) Hypertension: Continue home hydrochlorothiazide and losartan Status: Acute (7) Hypoxia: Status: Acute Additional A&P Information Shortness of breath: Most likely due to COPD exacerbation. Patient does not have any fever, leukocytosis. Results of procalcitonin, CT chest, proBNP, echocardiogram appreciated. Etiology of patient's shortness of breath most likely from COPD exacerbation due to bronchitis. DuoNebs every 6 hour, budesonide twice daily. Solu-Medrol 40 mg daily now. Weaning today. COVID-19 was ruled out. For now we will hold off on any PCR for COVID-19 test. Will test depending on the results of CT scan or if patient has any fever. Hypertension: Goal blood pressure less than 140/90 mmHg. Blood pressure is mildly elevated today. We will increase the Cozaar to 100 mg daily. Continue home dose of hydrochlorothiazide. Dirty UA/gram-negative rods in urine culture.: Patient denies of having any dysuria. Urine cultures growing E. coli resistant to levofloxacin. For now we will switch over from levofloxacin to ceftriaxone. DVT prophylaxis: Lovenox Diet: Cardiac CODE STATUS: Full code Have advised patient to walk around the hong today. Most likely patient can be discharged in next 1 or 2 days. Will be from prednisone to oral prednisone tomorrow morning. Patient would most likely go home with home oxygen. Will do home oxygen evaluation on discharge. Attestations Medical Necessity Statement*: Acute hypoxia, COPD exacerbation Time Spent in Patient Care: Greater than 35 minutes (>than 50% of time spent in counselling and/or direct pt care on unit) . Coding Level of Care Code Acute Cell Room Operator for Milly Tobias Diagnoses Acute exacerbation of chronic obstructive airways disease J44.1 Cystitis N30.90 COPD (chronic obstructive pulmonary disease) J44.9 Gastroesophageal reflux disease K21.9 Hyperlipidemia E78.5 Hypertension I10 Hypoxia R09.02
[2020-04-02] MEDS: cefTRIAXone 1,000 MG in sodium chloride 0.9% (plus) 50 ML 100 MG IV (15:57)
[2020-04-03] VITALS (15 sets, daily range): BP systolic 132–138; BP diastolic 76–84; PULSE 84–101; RESP 16–20; TEMP 36.5–36.9; O2SAT 89–95; BMI 31.9
[2020-04-03] MEDS: ipratropium-albuterol 3 mL Neb INHALATION ×4 (03:54→20:07)
[2020-04-03 05:56] LABS: Basophils % 0.2 %; Eosinophils # 0.1 10^3/uL (0.0-0.8); Eosinophils % 0.9 %; Hematocrit 41.4 % (37.0-47.0); Hemoglobin 13.4 g/dL (11.5-15.3); Lymphocytes # 3.3 10^3/uL (0.8-4.8); Lymphocytes % 21.6 %; Mean Corpuscular HGB Conc 32.4 g/dL (30.0-36.0); Mean Corpuscular Hemoglobin 30.7 pg (28.0-34.0); Mean Corpuscular Volume 94.7 fL (81-99); Mean Platelet Volume 10.7 fL (7.4-10.4); Monocytes # 1.8 10^3/uL (0.2-0.9); Monocytes % 12.1 %; Neutrophils # 9.87 10^3/uL (1.8-7.7); Neutrophils % 64.7 %; Nucleated Red Blood Cells % 0 %; Platelet Count 348 10^3/cmm (130-400); Red Blood Count 4.37 10^6/uL (4.1-5.3); White Blood Count 15.2 10^3/uL (4.0-10.0)
[2020-04-03 06:16] LABS: Alanine Aminotransferase 21 U/L (0-33); Albumin Level 3.4 g/dL (3.5-5.2); Alkaline Phosphatase 89 IU/L (35-105); Anion Gap 11.5 (5-19); Aspartate Amino Transferase 21 U/L (0-32); Blood Urea Nitrogen 18 mg/dL (8-23); Calcium 8.9 mg/dL (8.5-10.5); Carbon Dioxide 28 mmol/L (22-29); Chloride 102 mmol/L (98-107); Globulin 2.6 g/dL (1.3-4.6); Glomerular Filtration Rate 62.1 mL/min (90-130); Glucose 137 mg/dL (65-115); Osmolality Calculated 285 mOsm/kg (285-295); Potassium 3.5 mmol/L (3.5-5.1); Sodium 138 mmol/L (136-145); Total Bilirubin 0.2 mg/dL (0.15-1.2)
[2020-04-03] MEDS: atorvastatin 40 mg Tablet 20 MG PO (08:38)
[2020-04-03] MEDS: pantoprazole DR 40 mg Tablet PO (08:39)
[2020-04-03] MEDS: aspirin 81 mg Chew Tablet PO (08:40)
[2020-04-03] MEDS: hydroCHLOROthiazide 25 mg Tablet 12.5 MG PO (08:41)
[2020-04-03] MEDS: losartan 50 mg Tablet 100 MG PO (08:44)
[2020-04-03] MEDS: budesonide 0.5 mg/2 mL Neb INHALATION ×2 (08:48→20:07)
--- NOTE | 2020-04-03 14:38 | PM.PN ---
Subjective Subjective: Interval history: This morning patient was examined, she sitting up to the side of the bed, states that she is doing much better since her initial hospitalization, states that she still short of breath with exertion, she has not gone up and fully walked the hallways yet, no fevers, no chills, no nausea, no vomiting, she is a bit anxious as she originally was here in [place] for a , she has to fly back to [place], she not sure she is ready for the trip Vitals/I&O/Wt Last Vital Signs Temp 98.2 F 04/03/20 12:00 Pulse 87 04/03/20 14:35 Resp 18 04/03/20 14:35 BP 137/80 04/03/20 12:00 Pulse Ox 90 04/03/20 14:35 04/02/20 04/03/20 04/03/20 22:59 06:59 14:59 Intake Total 240 / 720 690 / 1410 520 / 520 Output Total 500 / 500 2 / 2 Balance 240 / 720 190 / 910 518 / 518 Weight last 48 hrs Weight 76.771 kg Weight 81.363 kg Physical Exam Const: COMMON NORMALS: no acute distress and patient oriented x3 HENMT: COMMON NORMALS: normocephalic HEAD & SCALP: normocephalic Neck/C-Spine: COMMON NORMALS: no JVD Resp: COMMON NORMALS: normal respiratory effort, No retractions, No use of accessory muscles and clear to auscultation bilaterally AUSCULTATION: clear to auscultation bilaterally Cardio: COMMON NORMALS: no JVD, regular rate, regular rhythm, S1 normal heart sound present and S2 normal heart sound present RATE: regular rate RHYTHM: regular rhythm HEART SOUNDS: S1 normal heart sound present and S2 normal heart sound present GI: COMMON NORMALS: Normal to inspection, nondistended, normoactive bowel sounds present, Soft to palpation, non-tender, No hepatosplenomegaly present, no masses and no bruits PALPATION: Yes Soft to palpation and Yes No hepatosplenomegaly present Extremity: COMMON NORMALS: capillary refill normal, no clubbing, cyanosis or edema, no calf tenderness and no pedal edema Neuro: COMMON NORMALS: patient oriented x3 Psych: COMMON NORMALS: mental status grossly normal Data : 04/03/20 05:26 04/03/20 05:26 Micro: Microbiology 04/01/20 15:45 MRSA Culture - Final Nose A&P Assessment and plan (1) Acute exacerbation of chronic obstructive airways disease: Status: Acute (2) Cystitis: Status: Acute (3) COPD (chronic obstructive pulmonary disease): Plan as above Status: Acute (4) Gastroesophageal reflux disease: Continue home PPI Status: Acute (5) Hyperlipidemia: Continue home statin Status: Acute (6) Hypertension: Continue home hydrochlorothiazide and losartan Status: Acute (7) Hypoxia: Status: Acute Additional A&P Information Shortness of breath: Most likely due to COPD exacerbation. Patient does not have any fever, leukocytosis. Results of procalcitonin, CT chest, proBNP, echocardiogram appreciated. Etiology of patient's shortness of breath most likely from COPD exacerbation due to bronchitis. Still short of breath with exertion, will give another 24 hours DuoNebs every 6 hour, budesonide twice daily. Solu-Medrol 40 mg daily now. COVID-19 was ruled out. For now we will hold off on any PCR for COVID-19 test. Will test depending on the results of CT scan or if patient has any fever. Hypertension: Goal blood pressure less than 140/90 mmHg. Blood pressure is mildly elevated today. We will increase the Cozaar to 100 mg daily. Continue home dose of hydrochlorothiazide. Dirty UA/gram-negative rods in urine culture.: Patient denies of having any dysuria. Urine cultures growing E. coli resistant to levofloxacin. Continue Rocephin DVT prophylaxis: Lovenox Diet: Cardiac CODE STATUS: Full code Goal today is to ambulate the hallways, monitor for the next 24 hours, likely discharge in the next 24 hours Attestations Medical Necessity Statement*: Patient requires continued hospitalization due to COPD exacerbation Coding Level of Care Code Acute Endless Bed Drum Sander for [facility] Micheline Diagnoses Acute exacerbation of chronic obstructive airways disease J44.1 Cystitis N30.90 COPD (chronic obstructive pulmonary disease) J44.9 Gastroesophageal reflux disease K21.9 Hyperlipidemia E78.5 Hypertension I10 Hypoxia R09.02
[2020-04-03] MEDS: enoxaparin 40 mg/0.4 mL Syringe SUBCUT (18:08)
[2020-04-03] MEDS: cefTRIAXone 1,000 MG in sodium chloride 0.9% (plus) 50 ML 100 MG IV (18:09)
--- NOTE | 2020-04-03 22:23 | PC.NURSE ---
Pt daughter- Marylou Levine called expressing their concern for her mother. She said Azeb texted her and stated that she is extremely worried about home tomorrow that she will end up right back in the same position she came here in. Azeb stated that a respiratory therapist told her that if she walked to the bathroom, rested then walked back to her bed that would be fine rather than walking through the halls. Azeb states this is not what the doctor told her. This policy writer typist explained to both Azeb and Marylou that if she would would like to walk in the hallway than I would glad walk her. Marylou also expressed concern that her mother said the doctor would call her for the past two days and never has. Explained to call around 0830 tomorrow and also will pass it on to the dayshift nurse in the morning. Also, concern about how her mother is going to get home- told her that social media manager will be in contact with plans. Went and asked Ms. Lewis if she would like to go for a walk she refused and said she would like use the restroom and take a nap at this time.
[2020-04-04] VITALS (9 sets, daily range): BP systolic 118–157; BP diastolic 62–93; PULSE 82–105; RESP 16–24; TEMP 36.4–36.8; O2SAT 91–93
[2020-04-04] MEDS: ipratropium-albuterol 3 mL Neb INHALATION ×2 (02:45→08:50)
[2020-04-04 05:19] LABS: Basophils % 0.1 %; Eosinophils # 0.1 10^3/uL (0.0-0.8); Eosinophils % 0.5 %; Hematocrit 42.5 % (37.0-47.0); Hemoglobin 13.8 g/dL (11.5-15.3); Lymphocytes # 2.8 10^3/uL (0.8-4.8); Lymphocytes % 17.3 %; Mean Corpuscular HGB Conc 32.5 g/dL (30.0-36.0); Mean Corpuscular Hemoglobin 30.5 pg (28.0-34.0); Mean Corpuscular Volume 93.8 fL (81-99); Mean Platelet Volume 10.7 fL (7.4-10.4); Monocytes # 1.9 10^3/uL (0.2-0.9); Monocytes % 11.7 %; Neutrophils # 11.38 10^3/uL (1.8-7.7); Nucleated Red Blood Cells % 0 %; Platelet Count 332 10^3/cmm (130-400); Red Blood Count 4.53 10^6/uL (4.1-5.3); Red Cell Distribution Width 12.9 % (12.1-15.1); White Blood Count 16.3 10^3/uL (4.0-10.0)
[2020-04-04 05:46] LABS: Alanine Aminotransferase 23 U/L (0-33); Albumin Level 3.3 g/dL (3.5-5.2); Alkaline Phosphatase 90 IU/L (35-105); Anion Gap 10.8 (5-19); Aspartate Amino Transferase 17 U/L (0-32); Blood Urea Nitrogen 15 mg/dL (8-23); Calcium 8.4 mg/dL (8.5-10.5); Carbon Dioxide 29 mmol/L (22-29); Chloride 102 mmol/L (98-107); Globulin 3.1 g/dL (1.3-4.6); Glucose 149 mg/dL (65-115); Magnesium 2.1 mg/dL (1.7-2.3); Osmolality Calculated 285 mOsm/kg (285-295); Phosphorus 3.7 mg/dL (2.5-4.5); Potassium 3.8 mmol/L (3.5-5.1); Sodium 138 mmol/L (136-145); Total Bilirubin 0.2 mg/dL (0.15-1.2); Total Protein 6.4 g/dL (6.6-8.7)
[2020-04-04] MEDS: budesonide 0.5 mg/2 mL Neb INHALATION (08:50)
[2020-04-04] MEDS: losartan 50 mg Tablet 100 MG PO (09:21)
[2020-04-04] MEDS: aspirin 81 mg Chew Tablet PO (09:21)
[2020-04-04] MEDS: hydroCHLOROthiazide 25 mg Tablet 12.5 MG PO (09:22)
[2020-04-04] MEDS: atorvastatin 40 mg Tablet 20 MG PO (09:22)
[2020-04-04] MEDS: pantoprazole DR 40 mg Tablet PO (09:33)
--- NOTE | 2020-04-04 10:00 | PC.SOCIAL ---
Pg 2 IMM Explained to pt Pg 2 IMM. No questions voiced. Provided pt a copy. Signed, dated, & timed a copy & placed in pt's chart.
--- NOTE | 2020-04-04 13:53 | P.DS_ITS ---
Discharge Providers Date of Admission: 04/01/20 13:13 Date of Discharge: April 04, 2020 Attending Provider at Admission: Judy Jaeger DO Attending Provider at Discharge: Mc Burks MD Diagnoses at Discharge Discharge Diagnosis (1) Acute exacerbation of chronic obstructive airways disease: Status: Acute (2) Cystitis: Status: Acute (3) COPD (chronic obstructive pulmonary disease): Status: Acute (4) Gastroesophageal reflux disease: Status: Acute (5) Hyperlipidemia: Status: Acute (6) Hypertension: Status: Acute Reason for Visit Reason for Visit: SOB, cough Hospital Course Discharge Summary: This is a 70-year-old female with a past medical history of hypertension, hyperlipidemia, COPD, who traveled here recently for the of her [id number] from [place] who presents to [facility] for complaints of shortness of breath Patient was admitted to [facility], general medical floors, for acute respiratory failure secondary to COPD exacerbation, patient received oxygen therapy, steroid therapy, nebulizer treatments, she was monitored on the general medical floors. Patient is COVID-[address] of the chest shows severe emphysematous changes with bronchiectasis, mild peribronchial thickening and subtle interstitial prominence, no lobar consolidation, or focal groundglass opacities. Patient was managed for COPD exacerbation, she clinically improved, she is weaned off oxygen therapy, she is minimally symptomatic with exertion, lungs sound clear with auscultation before discharge. Patient was discharged on a steroid taper, Advair, albuterol, with close follow-up with her primary care provider in 1 week. Patient stated that she has to remain in [place] for a few days to be with her brother, then she will travel up to [place]. I advised patient that if she had worsening shortness of breath, cough, fevers to come back to emergency room. Patient also had complaints of anxiety related to her [id number] passing, she worries about her brother, she was started on Celexa and hydroxyzine, with close follow-up with her primary care provider. For UTI, she received Rocephin as inpatient, discharged on Bactrim for 3 remaining days. Physical exam Alert oriented x3 Cardiovascular S1, S2, regular rate and rhythm Lungs clear to auscultation bilaterally Abdomen soft, nondistended, nontender, good bowel sounds Extremity no edema Physical Exam Const: COMMON NORMALS: no acute distress and patient oriented x3 HENMT: COMMON NORMALS: normocephalic HEAD & SCALP: normocephalic Neck/C-Spine: COMMON NORMALS: no JVD Resp: COMMON NORMALS: normal respiratory effort, No retractions, No use of accessory muscles and clear to auscultation bilaterally AUSCULTATION: clear to auscultation bilaterally Cardio: COMMON NORMALS: no JVD, regular rate, regular rhythm, S1 normal heart sound present and S2 normal heart sound present RATE: regular rate RHYTHM: regular rhythm HEART SOUNDS: S1 normal heart sound present and S2 normal heart sound present GI: COMMON NORMALS: Normal to inspection, nondistended, normoactive bowel sounds present, Soft to palpation, non-tender, No hepatosplenomegaly present, no masses and no bruits PALPATION: Yes Soft to palpation and Yes No hepatosplenomegaly present Extremity: COMMON NORMALS: capillary refill normal, no clubbing, cyanosis or edema, no calf tenderness and no pedal edema Neuro: COMMON NORMALS: patient oriented x3 Psych: COMMON NORMALS: mental status grossly normal Discharge Data Data Completed and Pending: Completed Studies During Hospitalization Category Date Time Status CT chest wo con 7 1250 Routine Cat Scan 04/01/20 13:12 Completed XR chest 1V effie ble [id number] Stat Exams 03/31/20 07:23 Completed CV echo complete* [id number] Routine Ultrasound 04/01/20 13:13 [place] [id number] Urgent Ultrasound 04/01/20 13:13 Completed Pending at discharge Category Date Time Status Complete Blood Co unt w/Auto AM LABS Lab 04/05/20 04:00 Ordered Complete Blood Co unt w/Auto AM LABS Lab 04/06/20 04:00 Ordered Comprehensive Met abolic Panel AM LA BS Lab 04/05/20 04:00 Ordered Comprehensive Met abolic Panel AM LA BS Lab 04/06/20 04:00 Ordered Magnesium AM LABS Lab 04/05/20 04:00 Ordered Magnesium AM LABS Lab 04/06/20 04:00 Ordered Phosphorus AM LAB S Lab 04/05/20 04:00 Ordered Phosphorus AM LAB S Lab 04/06/20 04:00 Ordered Labs from last 24 hours 04/04/20 04/04/20 04:54 04:54 WBC 16.3 H RBC 4.53 Hgb 13.8 Hct 42.5 MCV 93.8 MCH 30.5 MCHC 32.5 RDW 12.9 Plt Count 332 MPV 10.7 H Neut % (Auto) 70.0 Lymph % (Auto) 17.3 Dent % (Auto) 11.7 Eos % (Auto) 0.5 Baso % (Auto) 0.1 Neut # (Auto) 11.38 H Lymph # (Auto) 2.8 Dent # (Auto) 1.9 H Eos # (Auto) 0.1 Baso # (Auto) 0.0 Nucleated RBC % (a uto) 0 Nucleated RBCs # 0.0 Sodium 138 Potassium 3.8 Chloride 102 Carbon Dioxide 29 Anion Gap 10.8 BUN 15 Creatinine 0.7 GFR Calculation 83.0 L Glucose 149 H Calculated Osmolal ity 285 Calcium 8.4 L Phosphorus 3.7 Magnesium 2.1 Total Bilirubin 0.2 AST 17 ALT 23 Alkaline Phosphata se 90 Total Protein 6.4 L Albumin 3.3 L Globulin 3.1 Vitals: Last Vital Signs Temp 97.5 F L 04/04/20 11:28 Pulse 87 04/04/20 11:28 Resp 16 04/04/20 11:28 BP 157/93 04/04/20 11:28 Pulse Ox 93 04/04/20 08:50 Discharge Plan Discharge Patient Disposition: Home Condition: Stable Prescriptions: New losartan 50 mg Tablet 100 mg PO DAILY 30 Days Qty: 60 RF: 0 Bactrim DS 800-160 mg tablet 1 tab PO BID 3 Days Qty: 6 RF: 0 prednisone 10 mg tablet See Rx Instructions .ROUTE .COMPLEX Qty: 53 RF: 0 Celexa 10 mg tablet 10 mg PO DAILY 30 Days Qty: 30 RF: 0 hydroxyzine HCl 10 mg tablet 10 mg PO Q12H PRN (Reason: anxiety) 15 Days Qty: 30 RF: 0 Advair Diskus 250-50 mcg/dose blister with device 1 inh INHALATION BID Qty: 60 RF: 0 Continued atorvastatin 10 mg tablet 10 mg PO DAILY RF: 0 omeprazole 20 mg capsule,delayed release(DR/EC) 20 mg PO DAILY RF: 0 aspirin 81 mg Tablet,Chewable 81 mg PO DAILY RF: 0 hydrochlorothiazide 12.5 mg Tablet 12.5 mg PO DAILY RF: 0 albuterol sulfate 90 mcg/actuation Hfa Aerosol Inhaler 2 puff INHALATION Q6H PRN (Reason: Shortness Of Breath) Qty: 18 RF: 0 Discontinued losartan 50 mg tablet 50 mg PO DAILY RF: 0 budesonide-formoterol [Symbicort] 160-4.5 mcg/actuation Hfa Aerosol Inhaler 2 puff INHALATION BID RF: 0 Discharge Orders: Discharge Order (Routine); Ordered 04/04/20 Ordered By: Mc Burks Referrals: Rakesh Castro NP [Referring] - 04/11/20 10:00 am Discharge Diet: Regular Discharge Activity: Resume usual activity Patient Instructions: COPD, Urinary Tract Infection in Women (GEN), COPD Stoplight Activity Restrictions/Additional Instructions: -Please take steroid taper as prescribed -If you have worsening shortness of breath, cough please come back to emergency room -Please stop smoking or avoid cigarette smoke -Please wear a mask, social distance is 6 feet, handwashing Discharge Attestations Time Spent in Discharge Care*: less than 30 min Quality Metrics Clinical Quality Measures During this hospital stay, did patient experience: None Coding Level of Care Code Acute [facility] Diagnoses Acute exacerbation of chronic obstructive airways disease J44.1 Cystitis N30.90 COPD (chronic obstructive pulmonary disease) J44.9 Gastroesophageal reflux disease K21.9 Hyperlipidemia E78.5 Hypertension I10
--- NOTE | 2020-04-05 12:16 | PC.RESP ---
Smoking Cessation and Pulmonary Rehab information sent to patient.
== END 2020-04-04 14:50 | disposition home or self-care (01) | DRG 191 ==
LOC: ER 08:54 → MEDSURG 10:33
PROVIDERS: Student in an Organized Health Care Education/Training Program; Admitting Provider Family Medicine; Emergency Provider Family Medicine; Visit Provider Family Medicine
DX: J43.9 Emphysema, unspecified (principal); N30.00 Acute cystitis without hematuria; Z16.39 Resistance to other specified antimicrobial drug; I10 Essential (primary) hypertension; E78.5 Hyperlipidemia, unspecified; Z11.59 Encounter for screening for other viral diseases; K21.9 Gastro-esophageal reflux disease without esophagitis; Z87.891 Personal history of nicotine dependence; I25.10 Atherosclerotic heart disease of native coronary artery without angina pectoris; R07.81 Pleurodynia; M71.22 Synovial cyst of popliteal space [Baker], left knee; R06.02 Shortness of breath; R09.02 Hypoxemia; B96.20 Unspecified Escherichia coli [E. coli] as the cause of diseases classified elsewhere; Z79.82 Long term (current) use of aspirin; Z79.51 Long term (current) use of inhaled steroids
CPT/HCPCS: 12345; 36415; 36600; 71045; 71250; 80048; 80051; 80053; 81001; 82810; 83036; 83735; 83880; 83986; 84100; 84145; 84443; 84484; 85025; 85378; 85610; 87077; 87086; 87186; 87426; 87641; 93005; 93010; 93306; 93970; 94640; 94664; 94667; 96372; 96375; 99283; G0378; J0696; J1650; J2920; J3490; J3535; J7512; J7626